=== PATIENT | female | born 1945 ===

== ENCOUNTER 2016-09-22 11:43 | Outpatient (CLI) | payer MEDICARE ==
[2016-09-22 12:53] LABS: #Basophils 0.1 thou/uL (0.0-0.2); #Eosinphils 0.2 thou/uL (0.0-0.7); #Lymphocytes 2.7 thou/uL (1.20-3.40); #Monocytes 0.5 thou/uL (0.11-0.59); %Eosinophils 2.2 % (0.0-10.0); %Monocytes 6.2 % (0.0-10.0); Hematocrit 41.7 % (36.0-47.0); Mean Platelet Volume 6.7 fL (7.4-10.4); Red Blood Cell (RBC) Count 4.26 mill/uL (4.20-5.40); White Blood Cell (WBC) Count 8.5 thou/uL (4.8-10.8)
[2016-09-22 13:11] LABS: ALT (SGPT) 13 U/L (0-55); AST (SGOT) 11 U/L (5-34); Alkaline Phosphatase 138 U/L (40-150); Anion Gap 15 mmol/L (10-20); BUN (Urea Nitrogen) 23 mg/dL (9.8-20.1); Bilirubin, Total 0.2 mg/dL (0.2-1.2); Calc. Creatinine Clearance 0 mL/min (70-130); Calcium 9.1 mg/dL (7.8-10.44); Carbon Dioxide 31 mmol/L (23-31); Chloride 96 mmol/L (98-107); Estimated GFR-MDRD 67; LDL Cholesterol, Calculated 138 mg/dL; Protein, Total 6.7 g/dL (5.8-8.1)
[2016-09-22 13:12] LABS: Hemoglobin A1c 7.8 % (4.0-6.0)
== END 2016-09-22 11:44 ==
LOC: HPCALD 11:43
PROVIDERS: ATTEND Family Medicine
DX: E11.9 Type 2 diabetes mellitus without complications (principal); I10 Essential (primary) hypertension; E03.9 Hypothyroidism, unspecified; E78.5 Hyperlipidemia, unspecified
CPT/HCPCS: 36415; 80053; 80061; 83036; 84439; 84443; 85025